=== PATIENT | male | born 1955 | race Caucasian/White ===

== ENCOUNTER 2020-11-03 09:04 | Day surgery (SDC) | payer OTHER ==
[2020-10-31 12:48] VITALS: BMI 23.6
[2020-11-03] MEDS ORDERED: KETAMINE HCL 500 MG/10 ML VIAL ONE (11:08)
[2020-11-03 11:47] VITALS: TEMP 98.4
[2020-11-03 12:38] VITALS: BP 126/77; PULSE 58
[2020-11-04 12:10] LABS: SARS-CoV-2 NAA Not Detected (Not Detected)
== END 2020-11-03 12:45 | disposition home or self-care (01) ==
LOC: FECT 09:04
PROVIDERS: ATTEND Psychiatry & Neurology Psychiatry
PROC: GZB4ZZZ Other Electroconvulsive Therapy (ICD-10-PCS; principal; 2020-11-03 11:30)
DX: F32.9 Major depressive disorder, single episode, unspecified (principal)
CPT/HCPCS: 90870; 94760; C9803; U0003; U0005

== ENCOUNTER 2020-11-07 10:08 | Day surgery (SDC) | payer OTHER ==
[2020-11-03 15:00] VITALS: BMI 23.6
[2020-11-07] MEDS ORDERED: KETAMINE HCL 500 MG/10 ML VIAL ONE (11:05)
[2020-11-07 12:19] VITALS: PULSE 54; TEMP 98.1
[2020-11-07 13:16] VITALS: BP 142/77
[2020-11-08 15:08] LABS: SARS-CoV-2 NAA Not Detected (Not Detected)
== END 2020-11-07 13:00 | disposition home or self-care (01) ==
LOC: FECT 10:08
PROVIDERS: ATTEND Psychiatry & Neurology Psychiatry
PROC: GZB4ZZZ Other Electroconvulsive Therapy (ICD-10-PCS; principal; 2020-11-07 11:00)
DX: F33.2 Major depressive disorder, recurrent severe without psychotic features (principal)
CPT/HCPCS: 90870; 94760; C9803; U0003; U0005

== ENCOUNTER 2020-11-10 07:02 | Day surgery (SDC) | payer OTHER ==
[2020-11-10 07:45] VITALS: BMI 23.6
[2020-11-10] MEDS ORDERED: KETAMINE HCL 500 MG/10 ML VIAL ONE (09:08)
[2020-11-10] MEDS ORDERED: GLYCOPYRROLATE 0.2 MG/1 ML VIAL ONE (09:31)
[2020-11-10 10:43] VITALS: TEMP 98.1
[2020-11-10 10:46] VITALS: BP 134/84; PULSE 59
[2020-11-11 10:10] LABS: SARS-CoV-2 NAA Not Detected (Not Detected)
== END 2020-11-10 10:45 | disposition home or self-care (01) ==
LOC: FECT 07:02
PROVIDERS: ATTEND Psychiatry & Neurology Psychiatry
PROC: GZB4ZZZ Other Electroconvulsive Therapy (ICD-10-PCS; principal; 2020-11-10 09:00)
DX: F33.2 Major depressive disorder, recurrent severe without psychotic features (principal)
CPT/HCPCS: 90870; 94760; C9803; U0003; U0005

== ENCOUNTER 2020-11-14 07:27 | Day surgery (SDC) | payer OTHER ==
[2020-11-14 08:07] VITALS: BMI 23.6
[2020-11-14] MEDS ORDERED: KETAMINE HCL 500 MG/10 ML VIAL ONE (08:48)
[2020-11-14] MEDS ORDERED: ONDANSETRON 4 MG/2 ML VIAL ONE (08:57)
[2020-11-14 09:53] VITALS: TEMP 98.4
[2020-11-14 10:39] VITALS: BP 122/75; PULSE 56
[2020-11-15 10:07] LABS: SARS-CoV-2 NAA Not Detected (Not Detected)
== END 2020-11-14 11:00 | disposition home or self-care (01) ==
LOC: FECT 07:27
PROVIDERS: ATTEND Psychiatry & Neurology Psychiatry
PROC: GZB4ZZZ Other Electroconvulsive Therapy (ICD-10-PCS; principal; 2020-11-14 09:00)
DX: F32.9 Major depressive disorder, single episode, unspecified (principal)
CPT/HCPCS: 90870; 94760; C9803; U0003; U0005

== ENCOUNTER 2020-11-17 09:24 | Day surgery (SDC) | payer OTHER ==
[2020-11-17 09:50] VITALS: BMI 23.6
[2020-11-17] MEDS ORDERED: KETAMINE HCL 500 MG/10 ML VIAL ONE (10:34)
[2020-11-17 12:22] VITALS: PULSE 56; TEMP 97.9
[2020-11-17 12:59] VITALS: BP 137/82
[2020-11-18 13:08] LABS: SARS-CoV-2 NAA Not Detected (Not Detected)
== END 2020-11-17 13:00 | disposition home or self-care (01) ==
LOC: FECT 09:24
PROVIDERS: ATTEND Psychiatry & Neurology Psychiatry
PROC: GZB4ZZZ Other Electroconvulsive Therapy (ICD-10-PCS; principal; 2020-11-17 08:30)
DX: F32.9 Major depressive disorder, single episode, unspecified (principal)
CPT/HCPCS: 90870; C9803; U0003; U0005

== ENCOUNTER 2020-11-21 05:59 | Day surgery (SDC) | payer OTHER ==
[2020-11-10 14:22] VITALS: BMI 23.6
[2020-11-21] MEDS ORDERED: KETAMINE HCL 500 MG/10 ML VIAL ONE (07:52)
[2020-11-21] MEDS ORDERED: GLYCOPYRROLATE 0.2 MG/1 ML VIAL ONE (07:58)
[2020-11-21 08:21] VITALS: TEMP 97.7
[2020-11-21 08:29] VITALS: PULSE 64
[2020-11-21 09:41] VITALS: BP 138/82
[2020-11-22 15:07] LABS: SARS-CoV-2 NAA Not Detected (Not Detected)
== END 2020-11-21 09:40 | disposition home or self-care (01) ==
LOC: FECT 05:59
PROVIDERS: ATTEND Psychiatry & Neurology Psychiatry
PROC: GZB4ZZZ Other Electroconvulsive Therapy (ICD-10-PCS; principal; 2020-11-21 07:30)
DX: F32.9 Major depressive disorder, single episode, unspecified (principal)
CPT/HCPCS: 90870; 94760; C9803; U0003; U0005

== ENCOUNTER 2020-11-24 09:10 | Day surgery (SDC) | payer OTHER ==
[2020-11-24 10:04] VITALS: BMI 23.6
[2020-11-24] MEDS ORDERED: PROPOFOL 20 ML ONE (11:30)
[2020-11-24] MEDS ORDERED: SUCCINYLCHOLINE CHLORIDE 200 MG/10 ML SYRINGE ONE (11:30)
[2020-11-24] MEDS ORDERED: KETAMINE HCL 500 MG/10 ML VIAL ONE (11:31)
[2020-11-24 12:14] VITALS: TEMP 98
[2020-11-24 12:57] VITALS: BP 139/79; PULSE 55
[2020-11-25 14:08] LABS: SARS-CoV-2 NAA Not Detected (Not Detected)
== END 2020-11-24 13:15 | disposition home or self-care (01) ==
LOC: FECT 09:10
PROVIDERS: ATTEND Psychiatry & Neurology Psychiatry
PROC: GZB4ZZZ Other Electroconvulsive Therapy (ICD-10-PCS; principal; 2020-11-24 11:00)
DX: F32.9 Major depressive disorder, single episode, unspecified (principal)
CPT/HCPCS: 90870; 94010; 94760; C9803; U0003; U0005

== ENCOUNTER 2020-11-28 06:16 | Day surgery (SDC) | payer OTHER ==
[2020-11-18 08:17] VITALS: BMI 23.6
[2020-11-28] MEDS ORDERED: KETAMINE HCL 500 MG/10 ML VIAL ONE (07:33)
[2020-11-28] MEDS ORDERED: GLYCOPYRROLATE 0.2 MG/1 ML VIAL ONE (07:54)
[2020-11-28 08:08] VITALS: TEMP 97.8
[2020-11-28 09:15] VITALS: BP 140/78; PULSE 55
[2020-11-29 14:07] LABS: SARS-CoV-2 NAA Not Detected (Not Detected)
== END 2020-11-28 09:15 | disposition home or self-care (01) ==
LOC: FECT 06:16
PROVIDERS: ATTEND Psychiatry & Neurology Psychiatry
PROC: GZB4ZZZ Other Electroconvulsive Therapy (ICD-10-PCS; principal; 2020-11-28 08:00)
DX: F32.9 Major depressive disorder, single episode, unspecified (principal)
CPT/HCPCS: 90870; 94760; C9803; U0003; U0005

== ENCOUNTER 2020-12-01 06:44 | Day surgery (SDC) | payer OTHER ==
[2020-11-18 08:22] VITALS: BMI 23.6
[2020-12-01] MEDS ORDERED: KETAMINE HCL 500 MG/10 ML VIAL ONE (09:41)
[2020-12-01 11:03] VITALS: PULSE 73; TEMP 98
[2020-12-01 11:45] VITALS: BP 143/84
== END 2020-12-01 11:40 | disposition home or self-care (01) ==
LOC: FECT 06:44
PROVIDERS: ATTEND Psychiatry & Neurology Psychiatry
PROC: GZB4ZZZ Other Electroconvulsive Therapy (ICD-10-PCS; principal; 2020-12-01 10:00)
DX: F32.9 Major depressive disorder, single episode, unspecified (principal)
CPT/HCPCS: 90870; 94760; C9803; U0003; U0005

== ENCOUNTER 2020-12-05 06:20 | Day surgery (SDC) | payer OTHER ==
[2020-12-05 06:51] VITALS: BMI 23.6
[2020-12-05] MEDS ORDERED: KETAMINE HCL 200 MG/20 ML VIAL ONE (07:47)
[2020-12-05 08:31] VITALS: TEMP 98
[2020-12-05 09:38] VITALS: BP 136/70; PULSE 56
[2020-12-06 14:08] LABS: SARS-CoV-2 NAA Not Detected (Not Detected)
== END 2020-12-05 09:45 | disposition home or self-care (01) ==
LOC: FECT 06:20
PROVIDERS: ATTEND Psychiatry & Neurology Psychiatry
PROC: GZB4ZZZ Other Electroconvulsive Therapy (ICD-10-PCS; principal; 2020-12-05 08:00)
DX: F32.9 Major depressive disorder, single episode, unspecified (principal)
CPT/HCPCS: 90870; 94760; C9803; U0003; U0005

== ENCOUNTER 2020-12-08 09:47 | Day surgery (SDC) | payer OTHER ==
[2020-12-04 17:20] VITALS: BMI 23.6
[2020-12-08] MEDS ORDERED: KETAMINE HCL 500 MG/10 ML VIAL ONE (11:19)
[2020-12-08 12:29] VITALS: TEMP 97.8
[2020-12-08 13:03] VITALS: BP 133/84; PULSE 61
== END 2020-12-08 13:19 | disposition home or self-care (01) ==
LOC: FECT 09:47
PROVIDERS: ATTEND Psychiatry & Neurology Psychiatry
PROC: GZB4ZZZ Other Electroconvulsive Therapy (ICD-10-PCS; principal; 2020-12-08 10:30)
DX: F32.9 Major depressive disorder, single episode, unspecified (principal)
CPT/HCPCS: 90870; 94760; C9803; U0003; U0005

== ENCOUNTER 2020-12-12 06:25 | Day surgery (SDC) | payer OTHER ==
[2020-12-09 12:39] VITALS: BMI 23.6
[2020-12-12] MEDS ORDERED: KETAMINE HCL 500 MG/10 ML VIAL ONE (07:13)
[2020-12-12 08:46] VITALS: TEMP 97.7
[2020-12-12 09:50] VITALS: BP 123/71; PULSE 51
== END 2020-12-12 09:30 | disposition home or self-care (01) ==
LOC: FECT 06:25
PROVIDERS: ATTEND Psychiatry & Neurology Psychiatry
PROC: GZB4ZZZ Other Electroconvulsive Therapy (ICD-10-PCS; principal; 2020-12-12 07:30)
DX: F32.9 Major depressive disorder, single episode, unspecified (principal)
CPT/HCPCS: 90870; 94760; C9803; U0003; U0005

== ENCOUNTER 2020-12-26 08:22 | Day surgery (SDC) | payer OTHER ==
[2020-12-23 07:59] VITALS: BMI 23.6
[2020-12-26 08:48] VITALS: TEMP 98
[2020-12-26 11:08] VITALS: PULSE 54
[2020-12-26 11:23] VITALS: BP 145/80
== END 2020-12-26 11:45 | disposition home or self-care (01) ==
LOC: FECT 08:22
PROVIDERS: ATTEND Psychiatry & Neurology Psychiatry
PROC: GZB4ZZZ Other Electroconvulsive Therapy (ICD-10-PCS; principal; 2020-12-26 10:00)
DX: F33.2 Major depressive disorder, recurrent severe without psychotic features (principal)
CPT/HCPCS: 90870; 94760; C9803; U0003; U0005

== ENCOUNTER 2020-12-29 09:02 | Day surgery (SDC) | payer OTHER ==
[2020-12-05 17:26] VITALS: BMI 23.6
[2020-12-29] MEDS ORDERED: KETAMINE HCL 500 MG/10 ML VIAL ONE (10:09)
[2020-12-29 12:00] VITALS: TEMP 97.8
[2020-12-29 12:01] VITALS: BP 140/81; PULSE 51
== END 2020-12-29 12:10 | disposition home or self-care (01) ==
LOC: FECT 09:02
PROVIDERS: ATTEND Psychiatry & Neurology Psychiatry
PROC: GZB4ZZZ Other Electroconvulsive Therapy (ICD-10-PCS; principal; 2020-12-29 09:30)
DX: F32.9 Major depressive disorder, single episode, unspecified (principal)
CPT/HCPCS: 90870; 94760; C9803; U0003; U0005

== ENCOUNTER 2021-01-02 09:57 | Observation (INO) | payer OTHER ==
[2021-01-02] MEDS ORDERED: ALBUTEROL SO4 2.5/IPRATROPIUM 0.5 INH SOL 3 ML VIAL.NEB. NEB ONE ×2 (10:05→11:00)
[2021-01-02 10:07] VITALS: BMI 23.6
[2021-01-02 11:05] LABS: BASO % 1.8 % (0-2.0); EOS % 2.4 % (0-4.5); HEMATOCRIT 41.2 % (35.4-49); HEMOGLOBIN 13.9 GM/dl (11.7-16.9); LYMPH % 13.2 % (8-40); MCH 32.5 pg (25.7-33.7); MCHC 33.9 g/dl (32.0-35.9); MEAN PLT VOLUME 9.4 fl (7.5-11.1); NEUT % 77.7 % (42.8-82.8); PLATELET COUNT 188 10^3/uL (134-434); RBC 4.29 M/mm3 (4.00-5.60); RDW 12.7 % (11.9-15.9); WHITE BLOOD COUNT 4.6 K/mm3 (4.0-10.8)
[2021-01-02 11:18] LABS: ALBUMIN 3.6 g/dl (3.4-5.0); BILIRUBIN,TOTAL 0.5 mg/dl (0.2-1); CALCIUM 8.4 mg/dl (8.5-10); CREATININE 0.8 mg/dl (0.55-1.3); TOT PROT 6.4 g/dl (6.4-8.2)
[2021-01-02 13:02] LABS: N-TERMINAL BNP 42.6 pg/ml (5-125)
[2021-01-02 13:37] VITALS: PULSE 70
[2021-01-02 14:39] VITALS: BP 128/73
[2021-01-02] MEDS ORDERED: SODIUM CHLORIDE 1,000 ML IV SCH (15:30)
[2021-01-02] MEDS ORDERED: PIPERACILLIN/TAZOB 3.375 GM 3.375 GM in DEXTROSE 5%-WATER - 50 ML IVPB SCH ×2 (15:45→18:00)
[2021-01-02] MEDS ORDERED: PIPERACILLIN/TAZOBACTAM 3.375 GM VIAL IVPB ONE ×2 (15:49→16:36)
[2021-01-02] MEDS ORDERED: DEXTROSE 5%-WATER - 50 ML IVPB ONE ×2 (15:50→16:36)
[2021-01-02] MEDS ORDERED: TUBERCULIN PPD 5 TU/0.1ML SYRINGE (IN PATIENT USE ONLY) ID ONE (16:00)
[2021-01-02 16:17] VITALS: TEMP 98.5
[2021-01-02] MEDS ORDERED: PATIENT'S OWN MEDICATION (NON-FORMULARY) (Paroxetine Hcl [Paxil] 40 MG Tablet) PO SCH (22:00)
[2021-01-02] MEDS ORDERED: MIRTAZAPINE 15 MG TABLET (FP) PO SCH (22:00)
[2021-01-02] MEDS ORDERED: PATIENT'S OWN MEDICATION (NON-FORMULARY) (Cariprazine Hcl [Vraylar] 1.5 MG Capsule) PO SCH (22:00)
[2021-01-02] MEDS ORDERED: PARoxetine HCL 20 MG TABLET PO SCH (22:00)
[2021-01-02] MEDS ORDERED: PATIENT'S OWN MEDICATION (NON-FORMULARY) (Vortioxetine Hydrobromide [Trintellix] 20 MG Tab PO SCH (22:00)
[2021-01-03] MEDS ORDERED: PIPERACILLIN/TAZOB 3.375 GM 3.375 GM in DEXTROSE 5%-WATER - 50 ML IVPB SCH (10:00)
== END 2021-01-02 17:46 | disposition left against medical advice (07) ==
LOC: FER 09:57 → FM/S 14:03
PROVIDERS: ADMIT Internal Medicine; ATTEND Internal Medicine
PROC: 3E0F7GC Introduction of Other Therapeutic Substance into Respiratory Tract, Via Natural or Artificial Opening (ICD-10-PCS; principal; 2021-01-02)
DX: R09.02 Hypoxemia (principal); T88.59XA Other complications of anesthesia, initial encounter; Y84.8 Other medical procedures as the cause of abnormal reaction of the patient, or of later complication, without mention of misadventure at the time of the procedure; Y82.8 Other medical devices associated with adverse incidents; Y92.234 Operating room of hospital as the place of occurrence of the external cause
CPT/HCPCS: 36415; 71045-TC-FY; 71250-TC; 80053; 83880; 84484; 85025; 87804; 87807; 90870; 93005; 94640; 94760; 99285-25; C9803; G0378; U0003; U0005